=== PATIENT | female | born 1970 ===

== ENCOUNTER 2022-10-12 05:30 | Day surgery (SDC) | payer OTHER ==
[~2022-10-12 05:30] MED LIST: SYNTHROID112 MCG PO
[2022-10-12] MEDS ORDERED: DICLOFENAC POTA50 MG PO (10:03)
== END 2022-10-12 11:30 | disposition home or self-care (01) ==
LOC: CIR.AMB 05:30
PROVIDERS: ATTEND Obstetrics & Gynecology
DX: D25.0 Submucous leiomyoma of uterus (principal); N84.0 Polyp of corpus uteri; N92.0 Excessive and frequent menstruation with regular cycle; F17.210 Nicotine dependence, cigarettes, uncomplicated; E03.9 Hypothyroidism, unspecified; Z20.822 Contact with and (suspected) exposure to COVID-19